=== PATIENT | female | born 1980 | race Hispanic/Latino ===

== ENCOUNTER 2018-12-17 10:55 | Emergency (ER) | payer OTHER ==
[2018-12-17] MEDS ORDERED: ORPHENADRINE CITRATE 30 MG/ML ML ONE (11:23)
== END 2018-12-17 12:35 | disposition home or self-care (01) ==
LOC: EDH 10:55
DX: S43.492A Other sprain of left shoulder joint, initial encounter (principal); S53.492A Other sprain of left elbow, initial encounter; S20.219A Contusion of unspecified front wall of thorax, initial encounter; Z87.442 Personal history of urinary calculi; Z88.6 Allergy status to analgesic agent; Z98.51 Tubal ligation status; Z90.710 Acquired absence of both cervix and uterus; Z90.5 Acquired absence of kidney; V49.49XA Driver injured in collision with other motor vehicles in traffic accident, initial encounter; Y93.89 Activity, other specified; Y92.410 Unspecified street and highway as the place of occurrence of the external cause; Y99.8 Other external cause status
CPT/HCPCS: 71045; 72040; 73030; 73080; 96372; 99284; J2360

== ENCOUNTER 2022-11-06 14:01 | Emergency (ER) | payer OTHER ==
[~2022-11-06] VITALS: Ht 160 cm; Wt 90.7 kg
[2022-11-06 14:07] VITALS: BP 138/93
[2022-11-06] MEDS ORDERED: TERB250T89 PO (17:43)
[2022-11-06] MEDS ORDERED: ACET-2079 PO (17:43)
[2022-11-06] MEDS ORDERED: KETO15CR2 TP (17:43)
[2022-11-06] MEDS ORDERED: HYDROCODONE/ACETAMINOPHEN 5/325 MG TAB PO ONE (18:00)
== END 2022-11-06 17:53 | disposition home or self-care (01) ==
LOC: EDH 14:01
DX: B35.3 Tinea pedis (principal); T69.022A Immersion foot, left foot, initial encounter; Z90.49 Acquired absence of other specified parts of digestive tract; Z98.890 Other specified postprocedural states; Z88.6 Allergy status to analgesic agent; Z88.8 Allergy status to other drugs, medicaments and biological substances